=== PATIENT | male | born 1960 | race Caucasian/White ===

== ENCOUNTER 2017-11-25 09:31 | Emergency (ER) | payer OTHER ==
[~2017-11-25] VITALS: Ht 182.9 cm; Wt 103.4 kg
[~2017-11-25 09:31] MED LIST: CRESTOR40 MG PO; FENOFIBRATE160 M1 PO; FLOMAX0.4 MG PO; LOPRESSOR50 MG PO; NAPROSYN500 MG PO; NORCO 5/3251 TABLET PO; RAMIPRIL5 MG PO
[2017-11-25] MEDS ORDERED: PERCOCET 5/31 TABLET PO (11:38)
[2017-11-25] MEDS ORDERED: MEDROL DOSEPAK4 MG PO (11:38)
[2017-11-25] MEDS ORDERED: SKELAXIN800 MG PO (11:38)
[2017-11-25 11:53] VITALS: BP 143/97
== END 2017-11-25 11:54 | disposition home or self-care (01) ==
LOC: EME 09:31
DX: M54.42 Lumbago with sciatica, left side (principal); I10 Essential (primary) hypertension
CPT/HCPCS: 99281; 99284; J2930